=== PATIENT | male | born 1960 | race Caucasian/White ===

== ENCOUNTER 2016-02-27 01:27 | Emergency (ER) | payer OTHER ==
[~2016-02-27] VITALS: Ht 170.2 cm; Wt 93.0 kg
[~2016-02-27 01:27] MED LIST: BENA10TA2 PO
[2016-02-27] MEDS ORDERED: LIDOCAINE VISCOUS 2% UD 15 ML UDC ONE (01:43)
[2016-02-27] MEDS ORDERED: FAMOTIDINE/PF INJ 20 MG/2 ML VIAL IV ONE ×2 (01:43→02:00)
[2016-02-27] MEDS ORDERED: MAG HYDROX/AL HYDROX/SIMETH 30 ML UDC ONE (01:43)
[2016-02-27] MEDS ORDERED: BELLADONNA /PHENOBARB 5 ML UDC 5 ML UDC ONE (01:43)
[2016-02-27 01:58] LABS: BASOPHILS % (AUTO) 0.4 % (0.0-2.0); DIFF TOTAL % 100 %; EOSINOPHILS # (AUTO) 0.2 /CMM (0.0-0.7); EOSINOPHILS % (AUTO) 2.4 % (0.0-6.0); HEMATOCRIT 47 % (39-51); HEMOGLOBIN 15.5 g/dL (13.5-17.5); LYMPHOCYTES # (AUTO) 2.9 /CMM (0.8-4.8); LYMPHOCYTES % (AUTO) 31.8 % (20.0-44.0); MEAN CORPUSCULAR HEMOGLOBIN 30 PG (26.0-33.0); MEAN CORPUSCULAR HGB CONC 33 g/dl (31.0-36.0); MEAN CORPUSCULAR VOLUME 91 fL (80-96); MONOCYTES # (AUTO) 0.8 /CMM (0.1-1.30); MONOCYTES % (AUTO) 8.7 % (2.0-12.0); NEUTROPHILS # (AUTO) 5.1 /CMM (1.8-8.9); NEUTROPHILS % (AUTO) 56.7 % (43.0-81.0); PLATELET COUNT (AUTO) 260 /CMM (150-450); RED BLOOD CELL COUNT(AUTO) 5.09 MIL/uL (4.5-6.0)
[2016-02-27] MEDS ORDERED: BELLADONNA /PHENOBARB 5 ML UDC 5 ML UDC PO ONE (02:00)
[2016-02-27] MEDS ORDERED: MAG HYDROX/AL HYDROX/SIMETH 30 ML UDC PO ONE (02:00)
[2016-02-27] MEDS ORDERED: LIDOCAINE VISCOUS 2% UD 15 ML UDC MM ONE (02:00)
[2016-02-27 02:06] LABS: ANION GAP 11 (5-14); CARBON DIOXIDE 31 mmol/L (21-32); CHLORIDE 104 mmol/L (98-107); CREATININE 1.3 mg/dL (0.6-1.3); GFR 58 mL/min (>60); GLUCOSE 101 mg/dL (74-106); POTASSIUM 4.1 mmol/L (3.5-5.1); SODIUM SERUM 142 mmol/L (136-145); UREA NITROGEN, BLOOD 18 mg/dL (7-18)
[2016-02-27 02:12] LABS: ALANINE AMINOTRANSFERASE 56 U/L (12-78); ALBUMIN 4.1 g/dL (3.4-5.0); ASPARTATE AMINOTRANSFERASE 24 U/L (15-37); BILIRUBIN,DIRECT 0.1 mg/dL (0.0-0.2); BILIRUBIN,TOTAL 0.4 mg/dL (0.2-1.0); INDIRECT BILIRUBIN 0.3 mg/dL (0.0-1.1); TOTAL PROTEIN, SERUM 7.2 g/dL (6.4-8.2)
[2016-02-27 02:15] LABS: TROPONIN I < 0.017 ng/mL (0.00-0.056)
[2016-02-27] MEDS ORDERED: HYDROCODONE/APAP 5/325MG 1 EACH TABLET ONE (02:29)
[2016-02-27] MEDS ORDERED: HYDROCODONE/APAP 5/325MG 1 EACH TABLET PO ONE (02:30)
[2016-02-27 02:39] VITALS: BP 134/85
== END 2016-02-27 02:40 | disposition home or self-care (01) ==
LOC: ER 01:30
DX: R10.13 Epigastric pain (principal); F41.9 Anxiety disorder, unspecified; I10 Essential (primary) hypertension
CPT/HCPCS: 36415; 71010; 80048; 80076; 83690; 84484; 85025; 93005; 96374; 99285; A4606; J3490; Z7610

== ENCOUNTER 2020-07-28 10:15 | Emergency (ER) | payer BC, OTHER ==
[~2020-07-28] VITALS: Ht 170.2 cm; Wt 90.7 kg
[~2020-07-28 10:15] MED LIST changes: -BENA10TA2 PO; +BENA10TA74 PO
--- NOTE | 2020-07-28 10:25 | NUR ---
"woke up this am around 0745 with back pain near kidney area" Patient a/ox4, breathing even and unlabored, no sob noted, needs attended, c/o severe back pain, unable to sit still. Changed into a gown.
--- NOTE | 2020-07-28 10:30 | NUR ---
IV LINE ESTABLISHED , BLOOD DRAWN AND SENT TO LAB.
[2020-07-28] MEDS: IV NS 0.9% 1,000 ML BAG IV ONE (10:49)
[2020-07-28] MEDS ORDERED: ONDANSETRON HCL/PF 4 MG/2 ML VIAL ONE (10:49)
[2020-07-28] MEDS ORDERED: MORPHINE SULFATE INJ 4 MG/ML DISP.SYRIN ONE (10:50)
--- NOTE | 2020-07-28 10:50 | NUR ---
PATIENT UNABLE TO PROVIDE URINE AT THIS TIME.
[2020-07-28 10:51] LABS: BASOPHILS % (AUTO) 0.5 % (0.0-2.0); EOSINOPHILS % (AUTO) 1.4 % (0.0-6.0); HEMATOCRIT 45 % (39-51); HEMOGLOBIN 14.8 g/dL (13.5-17.5); LYMPHOCYTES # (AUTO) 1.1 /CMM (0.8-4.8); LYMPHOCYTES % (AUTO) 16.3 % (20.0-44.0); MEAN CORPUSCULAR HGB CONC 33 g/dl (31.0-36.0); MEAN CORPUSCULAR VOLUME 94 fL (80-96); MONOCYTES # (AUTO) 0.4 /CMM (0.1-1.30); NEUTROPHILS # (AUTO) 5.3 /CMM (1.8-8.9); NEUTROPHILS % (AUTO) 75.8 % (43.0-81.0); PLATELET COUNT (AUTO) 259 /CMM (150-450); RED BLOOD CELL COUNT(AUTO) 4.76 MIL/uL (4.5-6.0); WHITE BLOOD COUNT (AUTO) 6.9 K/uL (4.3-11.0)
[2020-07-28] MEDS: ONDANSETRON HCL/PF 4 MG/2 ML VIAL IVP ONE (10:55)
[2020-07-28 10:56] LABS: CREATININE 1.5 mg/dL (0.6-1.3); POTASSIUM 4.2 mmol/L (3.5-5.1)
[2020-07-28] MEDS: MORPHINE SULFATE INJ 2 MG/ML DISP.SYRIN IV ONE (10:56)
[2020-07-28 11:02] LABS: ALBUMIN 3.9 g/dL (3.4-5.0); BILIRUBIN,DIRECT 0.1 mg/dL (0.0-0.2); BILIRUBIN,TOTAL 0.5 mg/dL (0.2-1.0)
--- NOTE | 2020-07-28 11:14 | NUR ---
PATIENT TAKEN TO CT.
[2020-07-28 12:12] LABS: BILIRUBIN,URINE SMALL (NEGATIVE); COLOR,URINE YELLOW (YELLOW); LEUKOCYTE ESTERASE ,URINE Negative (NEGATIVE); NITRITE, URINE Negative (NEGATIVE); PH,URINE 5.5 (5.0-8.0); PROTEIN,URINE Trace mg/dl (NEGATIVE); UGLUCOSE Negative (NEGATIVE); UROBILINOGEN,URINE 0.2 EU/dL (0.2)
[2020-07-28 12:26] LABS: BACTERIA,URINE Few /HPF (None Seen); SQUAMOUS EPITHELIAL CELL,UR Few /HPF (None Seen); WBC,URINE 0-2 /HPF (0-3)
[2020-07-28 12:27] LABS: URINE AMORPHOUS URATE Moderate /HPF (None Seen)
[2020-07-28] MEDS ORDERED: HYDR-4209 PO (12:34)
[2020-07-28] MEDS ORDERED: TAMS-12 PO (12:34)
--- NOTE | 2020-07-28 12:47 | NUR ---
PATIENT'S PAIN HAS IMPROVED, ALL NEEDS ATTENDED. AT BEDSIDE. DR. SANTOS TALKED TO PATIENT RE: ACI. Patient ambulatory with steady gait. IV removed. Catheter intact and site benign. Pressure and 4x4 applied to site. No bleeding noted.Patient discharged to home in stable condition. Written and verbal after care instructions given. Patient verbalizes understanding of instruction.
[2020-07-28 12:48] VITALS: BP 148/79
== END 2020-07-28 12:48 | disposition home or self-care (01) ==
LOC: ER 10:18
DX: N23 Unspecified renal colic (principal); I10 Essential (primary) hypertension; F41.9 Anxiety disorder, unspecified; Z79.899 Other long term (current) drug therapy
CPT/HCPCS: 36415; 74176; 80048; 80076; 81001; 83690; 85025; 87086; 96361; 96374; 96375; 99284; J2270; J2405; J7030

== ENCOUNTER 2021-07-08 03:33 | Emergency (ER) | payer OTHER ==
[~2021-07-08] VITALS: Ht 177.8 cm; Wt 90.7 kg
[~2021-07-08 03:33] MED LIST changes: +HYDR-4209 PO; +TAMS-12 PO
--- NOTE | 2021-07-08 03:45 | NUR ---
TO ER BED 9. BIBS C/O CHEST PAIN AND HIGH BP. HX OF PANIC ATTACKS. PT STATES HE WAS SITTING WHEN CHEST PAIN BEGAN. ELEVATED BP NOTED AT TRIAGE 166/106. CONNECTED TO MONITOR. NOT IN RESPIRATORY DISTRESS. AWAITING MD FISHER
[2021-07-08] MEDS ORDERED: ACETAMINOPHEN ES 500 MG TABLET PO ONE (04:00)
[2021-07-08] MEDS ORDERED: NITROGLYCERIN 0.4 MG/TAB BOTTLE SL ONE (04:00)
[2021-07-08] MEDS ORDERED: ASPIRIN 81 MG TAB.CHEW PO ONE (04:00)
[2021-07-08] MEDS ORDERED: NITROGLYCERIN PACKET 1 GM PACKET TD ONE (04:00)
[2021-07-08] MEDS ORDERED: ASPIRIN 81 MG TAB.CHEW ONE (04:05)
[2021-07-08] MEDS ORDERED: ACETAMINOPHEN ES 500 MG TABLET ONE (04:05)
[2021-07-08] MEDS ORDERED: NITROGLYCERIN 0.4 MG/TAB BOTTLE ONE (04:05)
[2021-07-08] MEDS ORDERED: NITROGLYCERIN PACKET 1 GM PACKET ONE (04:05)
--- NOTE | 2021-07-08 04:05 | NUR ---
20G IV LINE ESTABLISHED AT [facility]. BLOOD DRAWN AND SENT TO LAB.
[2021-07-08 04:18] LABS: BASOPHILS # (AUTO) 0.1 K/uL (0.0-0.2); BASOPHILS % (AUTO) 0.6 % (0.0-2.0); EOSINOPHILS % (AUTO) 2.3 % (0.0-6.0); HEMATOCRIT 44 % (39-51); HEMOGLOBIN 14.9 g/dL (13.5-17.5); LYMPHOCYTES # (AUTO) 1.6 K/uL (0.8-4.8); MEAN CORPUSCULAR HGB CONC 34 g/dl (31.0-36.0); MEAN CORPUSCULAR VOLUME 92 fL (80-96); MONOCYTES # (AUTO) 0.8 K/uL (0.1-1.30); MONOCYTES % (AUTO) 7.1 % (2.0-12.0); PLATELET COUNT (AUTO) 238 K/uL (150-450); RED BLOOD CELL COUNT(AUTO) 4.78 MIL/uL (4.5-6.0); WHITE BLOOD COUNT (AUTO) 10.7 K/uL (4.3-11.0)
[2021-07-08 04:31] LABS: CALCIUM, SERUM 9.1 mg/dL (8.5-10.1); CARBON DIOXIDE 27 mmol/L (21-32); CHLORIDE 105 mmol/L (98-107); CREATININE 1.2 mg/dL (0.6-1.3); GLUCOSE 113 mg/dL (74-106); POTASSIUM 4.1 mmol/L (3.5-5.1); SODIUM SERUM 139 mmol/L (136-145); UREA NITROGEN, BLOOD 26 mg/dL (7-18)
[2021-07-08 04:44] LABS: ALANINE AMINOTRANSFERASE 37 U/L (12-78); ALBUMIN 3.9 g/dL (3.4-5.0); ALKALINE PHOSPHATASE 84 U/L (46-116); ASPARTATE AMINOTRANSFERASE 16 U/L (15-37); BILIRUBIN,DIRECT 0.1 mg/dL (0.0-0.2); BILIRUBIN,TOTAL 0.4 mg/dL (0.2-1.0); TOTAL PROTEIN, SERUM 6.9 g/dL (6.4-8.2)
[2021-07-08] MEDS ORDERED: CLONIDINE HCL 0.1 MG TABLET ONE (05:51)
--- NOTE | 2021-07-08 05:54 | NUR ---
Patient discharged to home in stable condition. Written and verbal after care instructions given. Patient verbalizes understanding of instruction.IV line removed.
[2021-07-08 05:58] VITALS: BP 164/93
[2021-07-08] MEDS ORDERED: CLONIDINE HCL 0.1 MG TABLET PO ONE (06:00)
== END 2021-07-08 05:59 | disposition home or self-care (01) ==
LOC: ER 03:36
DX: R07.89 Other chest pain (principal); F41.0 Panic disorder [episodic paroxysmal anxiety]; I10 Essential (primary) hypertension; Z79.899 Other long term (current) drug therapy
CPT/HCPCS: 36415; 71045-TC; 80048-TC; 80076-TC; 83880; 84484-TC; 85025-TC; 85378-TC

== ENCOUNTER 2022-04-06 21:56 | Emergency (ER) | payer OTHER ==
[~2022-04-06] VITALS: Ht 172.7 cm; Wt 90.7 kg
--- NOTE | 2022-04-06 22:15 | NUR ---
BIBS C/O BODY RASH X 2 DAYS , TAKING AUGMENTIN. DENIES SOB. PT AAO X 4, BREATHING UNLABORED. ATTACHED TO MONITOR AND PULSE OX. AWAITING TO BE SEEN BY
[2022-04-06] MEDS ORDERED: diphenhydrAMINE HCL 50 MG/ML VIAL ONE (22:17)
[2022-04-06] MEDS ORDERED: predniSONE 20 MG TABLET ONE (22:17)
[2022-04-06] MEDS ORDERED: diphenhydrAMINE HCL 50 MG/ML VIAL IM ONE (22:30)
[2022-04-06] MEDS ORDERED: predniSONE 50 MG TABLET PO ONE (22:30)
[2022-04-07] MEDS ORDERED: CLONIDINE HCL 0.1 MG TABLET PO ONE (00:30)
[2022-04-07] MEDS ORDERED: CLONIDINE HCL 0.1 MG TABLET ONE (00:40)
[2022-04-07] MEDS ORDERED: EPIN0.3P3 IM (01:51)
[2022-04-07] MEDS ORDERED: PRED50TA PO (01:51)
[2022-04-07 02:06] VITALS: BP 144/82
--- NOTE | 2022-04-07 02:06 | NUR ---
Patient discharged to home in stable condition. Written and verbal after care instructions given. Patient verbalizes understanding of instruction. Pt ambulatory with a steady gait
== END 2022-04-07 02:06 | disposition home or self-care (01) ==
LOC: ER 22:00
DX: R21 Rash and other nonspecific skin eruption (principal); I10 Essential (primary) hypertension; F41.9 Anxiety disorder, unspecified; Z79.899 Other long term (current) drug therapy
CPT/HCPCS: 99285; 96372; J1200; J7512

== ENCOUNTER 2022-05-03 20:47 | Emergency (ER) | payer OTHER ==
[~2022-05-03] VITALS: Ht 175.3 cm; Wt 93.0 kg
[~2022-05-03 20:47] MED LIST changes: +EPIN0.3P3 IM; +PRED50TA PO
[2022-05-03] MEDS ORDERED: ALBUTEROL FS 2.5 MG/0.5 ML VIAL.NEB ONE ×2 (22:37→23:40)
[2022-05-03] MEDS: ALBUTEROL FS 2.5 MG/0.5 ML VIAL.NEB NEB ONE ×2 (22:42→23:36)
[2022-05-03 23:12] VITALS: BP 149/92
== END 2022-05-04 00:02 | disposition home or self-care (01) ==
LOC: ER 20:48
DX: J98.01 Acute bronchospasm (principal); I10 Essential (primary) hypertension; F41.9 Anxiety disorder, unspecified; Z79.899 Other long term (current) drug therapy
CPT/HCPCS: 71045-TC

== ENCOUNTER 2022-08-06 19:44 | Emergency (ER) | payer OTHER ==
[~2022-08-06] VITALS: Ht 175.3 cm; Wt 93.0 kg
--- NOTE | 2022-08-06 19:51 | NUR ---
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 Alert oriented x 4, on room air. afebrile. Placed on bed comfortably. Connected to bedside monitor.
--- NOTE | 2022-08-06 20:07 | NUR ---
INSERTED LAC # 18, BLOOD SPECIMEN SENT TO LABS
--- NOTE | 2022-08-06 20:28 | NUR ---
xray at bed side
[2022-08-06 20:36] LABS: BASOPHILS % (AUTO) 0.6 % (0.0-2.0); EOSINOPHILS % (AUTO) 3.8 % (0.0-6.0); HEMATOCRIT 45 % (39-51); HEMOGLOBIN 14.7 g/dL (13.5-17.5); LYMPHOCYTES # (AUTO) 2.2 K/uL (0.8-4.8); LYMPHOCYTES % (AUTO) 30.9 % (20.0-44.0); MEAN CORPUSCULAR HGB CONC 33 g/dl (31.0-36.0); MEAN CORPUSCULAR VOLUME 92 fL (80-96); MONOCYTES # (AUTO) 0.6 K/uL (0.1-1.30); MONOCYTES % (AUTO) 8.4 % (2.0-12.0); NEUTROPHILS % (AUTO) 56.3 % (43.0-81.0); PLATELET COUNT (AUTO) 273 K/uL (150-450); RED BLOOD CELL COUNT(AUTO) 4.89 MIL/uL (4.5-6.0); WHITE BLOOD COUNT (AUTO) 7.1 K/uL (4.3-11.0)
[2022-08-06 20:56] LABS: CALCIUM, SERUM 9.5 mg/dL (8.5-10.1); CARBON DIOXIDE 27 mmol/L (21-32); CHLORIDE 106 mmol/L (98-107); CREATININE 1.3 mg/dL (0.6-1.3); GLUCOSE 101 mg/dL (74-106); POTASSIUM 3.6 mmol/L (3.5-5.1); SODIUM SERUM 140 mmol/L (136-145); UREA NITROGEN, BLOOD 18 mg/dL (7-18)
[2022-08-06] MEDS ORDERED: hydrALAZINE HCL IV 20 MG VIAL ONE (21:00)
[2022-08-06] MEDS ORDERED: hydrALAZINE HCL IV 20 MG VIAL IV ONE (21:00)
[2022-08-06] MEDS ORDERED: LORAZEPAM 1 MG TABLET ONE (21:21)
[2022-08-06] MEDS ORDERED: LORAZEPAM 1 MG TABLET PO ONE (21:30)
[2022-08-06] MEDS ORDERED: ACETAMINOPHEN ES 500 MG TABLET ONE (22:17)
[2022-08-06] MEDS ORDERED: ACETAMINOPHEN ES 500 MG TABLET PO ONE (22:30)
[2022-08-06] MEDS ORDERED: DIPHENHYDRAMINE HCL 12.5 MG/5 ML UDC PO ONE (23:00)
[2022-08-06] MEDS ORDERED: diphenhydrAMINE HCL ELIX 25 MG/10 ML UDC ONE (23:01)
[2022-08-06 23:46] VITALS: BP 132/74
--- NOTE | 2022-08-06 23:46 | NUR ---
Patient discharged to home in stable condition. Ambulatory with . Written and verbal after care instructions given. Patient verbalizes understanding of instruction.
== END 2022-08-06 23:45 | disposition home or self-care (01) ==
LOC: ER 19:46
DX: R07.89 Other chest pain (principal); I10 Essential (primary) hypertension; F41.9 Anxiety disorder, unspecified; Z79.899 Other long term (current) drug therapy
CPT/HCPCS: 99285; 96374; 71045; 93005 ×4; 85025; 80048; 36415; 84484 ×2; Q0163 ×2; J0360

== ENCOUNTER 2022-12-31 05:47 | Emergency (ER) | payer OTHER ==
[~2022-12-31] VITALS: Ht 175.3 cm; Wt 93.0 kg
[2022-12-31] MEDS ORDERED: predniSONE 20 MG TABLET ONE (06:20)
[2022-12-31] MEDS ORDERED: diphenhydrAMINE HCL 50 MG CAPSULE ONE (06:21)
[2022-12-31] MEDS ORDERED: FAMOTIDINE (20 MG) 20 MG TABLET ONE (06:21)
[2022-12-31] MEDS ORDERED: PRED50TA PO (06:26)
[2022-12-31] MEDS ORDERED: FAMOTIDINE (20 MG) 20 MG TABLET PO ONE (06:30)
[2022-12-31] MEDS ORDERED: diphenhydrAMINE HCL 25 MG CAPSULE PO ONE (06:30)
[2022-12-31] MEDS ORDERED: predniSONE 50 MG TABLET PO ONE (06:30)
[2022-12-31 06:34] VITALS: BP 164/104; TEMP 98.1; O2SAT 99
== END 2022-12-31 06:34 | disposition home or self-care (01) ==
LOC: ER 05:49
DX: R21 Rash and other nonspecific skin eruption (principal); L29.9 Pruritus, unspecified; T78.40XA Allergy, unspecified, initial encounter; I10 Essential (primary) hypertension; Z79.899 Other long term (current) drug therapy; Z88.0 Allergy status to penicillin; X58.XXXA Exposure to other specified factors, initial encounter
CPT/HCPCS: 99284; Q0163; J7512